=== PATIENT | female | born 1970 | race Caucasian/White ===

== ENCOUNTER 2021-06-25 19:25 | Emergency (ER) | payer SELFPAY ==
[2021-06-25 19:35] VITALS: BP 115/61; PULSE 96; RESP 20; TEMP 36.6; O2SAT 96
[2021-06-25 19:48] VITALS: BMI 61.5
--- NOTE | 2021-06-25 20:02 | ED_ITS ---
HPI - Weakness General Chief complaint: Weakness Stated complaint: left leg weakness Time Seen by Provider: 06/25/21 20:02 Source: patient Mode of arrival: EMS Limitations: no limitations History of Present Illness HPI Narrative: Patient 350 lb obese 50-year-old female recently admitted and discharged from [facility] today was admitted from 06/14 to 06/21 readmitted on 06/21 and discharged today for MSSA bacteremia of unknown source with weekly Dalbavancin infusion when patient went home was unable to get up to the stairs to her trailer although she had manage stairs and walk within the room with minimal assist at the [facility] Related Data Home Medications Medication Instructions Recorded Confirmed acetaminophen 325 mg tablet 650 mg PO Q4H PRN 06/25/21 06/25/21 (Tylenol) citalopram 20 mg tablet 20 mg PO DAILY 06/25/21 06/25/21 gabapentin 100 mg capsule 100 mg PO TID 06/25/21 06/25/21 hydromorphone 2 mg tablet 2 mg Q6H PRN 06/25/21 06/25/21 ibuprofen 400 mg tablet 400 mg PO Q6H PRN 06/25/21 06/25/21 polyethylene glycol 3350 17 gram 17 g PO DAILY 06/25/21 06/25/21 oral powder packet tizanidine 4 mg capsule 4 mg TID 06/25/21 06/25/21 Allergies Allergy/AdvReac Type Severity Reaction Status Date / Time Penicillins Allergy Unknown Unknown Verified 06/25/21 20:17 Review of Systems Verdana 4l Review of Systems: Yes all other systems are reviewed and Verdana 4d are negative [facility] Past Medical History Medical History (Updated 06/25/21 @ 20:57 by Hasmukh Beltrán MD) GERD (gastroesophageal reflux disease) Morbid obesity MSSA bacteremia Pancreatitis Surgical History (Updated 06/25/21 @ 20:14 by Hasmukh Beltrán MD) H/O hernia repair Social History Social History Advance Directives: No Advance Directives Information Provided: No Physical Exam Verdana 4l Vital Signs: Verdana 4d Verdana 4d Vital Signs: Verdana 4d Verdana 4Bd Last Vital Signs Verdana 4d Line Assigner New 4d Line Assigner New 4d Temp 97.6 F 06/25/21 22:18 Line Assigner New 4d Pulse 85 06/25/21 22:18 Line Assigner New 4d Resp 18 06/25/21 22:18 BP 156/84 H 06/25/21 22:18 Pulse Ox 98 06/25/21 22:18 BMI result Body Mass Index 61.5 Appearance: Alert. Oriented X3. No acute distress. Morbidly obese Eyes: PERRLA, No Nystagmus ENT: Pharynx normal. Oral Mucosa moist Neck: Normal inspection. Neck supple. CVS: Normal heart rate and rhythm. Pulses normal. Respiratory: No respiratory distress. Equal air entry bilateral, Abdomen: Soft and nontender. Bowel sounds are present, Skin: Skin warm and dry. Normal skin color. Normal skin turgor. Extremities: No lower extremity edema. No calf tenderness Neuro: Oriented X 3. No motor deficit. MDM - Weakness MDM Narrative Medical decision making narrative: Patient morbidly obese, she is unable to enter the trailer because of quality of the steps which are tilted although she was able to go on steps when she was at [facility] will get Case Management consult for placement Medical Records Attestation: I reviewed the patient's medical records. Lab Data Attestation: I reviewed the patient's lab results. Result diagrams: 06/25/21 20:34 06/25/21 20:34 Labs: Lab Results 06/25/21 06/25/21 06/25/21 Range/Units 20:34 20:34 20:34 WBC 9.3 (4.8-10.8) X10*3/uL RBC 3.87 L (4.20-5.50) X10*6/uL Hgb 10.2 L (12.0-16.0) g/dl Hct 32.5 L (37.0-47.0) % MCV 84.0 (80.0-98.0) fL MCH 26.4 L (27.0-33.0) pg MCHC 31.4 (31.0-35.0) g/dl RDW 18.2 H (11.0-16.0) % Plt Count 392 (160-400) X10*3/uL MPV 9.3 L (9.4-12.3) fL Immature Gran % (Auto) 1.0 H (0.0-0.4) % Neut % (Auto) 72.1 (45-73) % Lymph % (Auto) 19.3 L (20-40) % [place] % (Auto) 6.1 (2-11) % Eos % (Auto) 1.1 (0-4) % Baso % (Auto) 0.4 (0-2) % Lymph # (Auto) 1.8 (1.2-4.9) X10*3/uL [place] # (Auto) 0.6 (0.1-1.2) X10*3/uL Eos # (Auto) 0.1 (0.0-0.4) X10*3/uL Baso # (Auto) 0.0 (0.0-0.2) X10*3/uL Abs Immat Gran (auto) 0.09 H (0.00-0.03) X10*3/uL Absolute Neuts (auto) 6.7 (2.0-8.3) x10*3/uL Absolute Nucleated RBC 0.000 (0.0-0.012) X10*3/uL Nucleated RBC % (auto) 0.0 (0.0-0.2) /100WBC Sodium 138 (135-145) mmol/L Potassium 3.3 (3.3-5.1) mmol/L Chloride 99 (96-108) mmol/L Carbon Dioxide 27 (22-29) mmol/L Anion Gap 15 (12-20) BUN 10 (9-16) mg/dL Creatinine 0.62 (0.5-1.4) mg/dL Estim Creat Clear Calc 177.5 Estimated GFR > 60 Random Glucose 84 (60-115) mg/dL Calcium 8.8 (8.4-10.2) mg/dL Total Bilirubin 0.5 (0.0-1.0) mg/dL AST 20 (5-31) U/L ALT 15 (0-31) U/L Alkaline Phosphatase 92 (39-117) U/L Total Protein 6.9 (6.5-8.0) g/dL Albumin 3.1 L (3.5-5.0) g/dL COVID-19 ([facility]) Negative (Negative) COVID-19 Clin Com See Note Discharge Plan Discharge Clinical Impression: Weakness, Morbid obesity Patient Disposition: Still a Patient Prescriptions: No Action hydromorphone 2 mg Tablet 2 mg Q6H PRN (Reason: moderate pain) 0RF tizanidine 4 mg Capsule 4 mg TID 0RF acetaminophen [Tylenol] 325 mg Tablet 650 mg PO Q4H PRN (Reason: Pain) 0RF polyethylene glycol 3350 17 gram Powder In Packet 17 g PO DAILY 0RF citalopram 20 mg Tablet 20 mg PO DAILY 0RF gabapentin 100 mg Capsule 100 mg PO TID 0RF ibuprofen 400 mg Tablet 400 mg PO Q6H PRN (Reason: pain) 0RF
[2021-06-25 20:39] LABS: MANUAL DIFF FLAG NO
[2021-06-25 20:41] LABS: Basophils Percent Auto 0.4 % (0-2); Eosinophils Absolute Auto 0.1 X10*3/uL (0.0-0.4); Eosinophils Percent Auto 1.1 % (0-4); Hematocrit 32.5 % (37.0-47.0); Hemoglobin 10.2 g/dl (12.0-16.0); Imm Gran Abs Auto 0.09 X10*3/uL (0.00-0.03); Lymphocytes Absolute Auto 1.8 X10*3/uL (1.2-4.9); Lymphocytes Percent Auto 19.3 % (20-40); Mean Corpuscular HGB Conc 31.4 g/dl (31.0-35.0); Mean Corpuscular Hemoglobin 26.4 pg (27.0-33.0); Mean Platelet Volume 9.3 fL (9.4-12.3); Monocytes Absolute Auto 0.6 X10*3/uL (0.1-1.2); Monocytes Percent Auto 6.1 % (2-11); Neutrophils Absolute Auto 6.7 x10*3/uL (2.0-8.3); Neutrophils Percent Auto 72.1 % (45-73); Platelet Count 392 X10*3/uL (160-400); Red Blood Count 3.87 X10*6/uL (4.20-5.50); Red Cell Distribution Width 18.2 % (11.0-16.0); White Blood Count 9.3 X10*3/uL (4.8-10.8)
[2021-06-25 20:55] LABS: Alanine Aminotransferase 15 U/L (0-31); Albumin Level 3.1 g/dL (3.5-5.0); Alkaline Phosphatase 92 U/L (39-117); Anion Gap 15 (12-20); Aspartate Amino Transferase 20 U/L (5-31); Bilirubin Total 0.5 mg/dL (0.0-1.0); Blood Urea Nitrogen 10 mg/dL (9-16); Calcium 8.8 mg/dL (8.4-10.2); Carbon Dioxide 27 mmol/L (22-29); Chloride 99 mmol/L (96-108); Creatinine Clr Calc Pharmacy 177.5; Estimated Glomerular Filt Rate > 60; Glucose Random 84 mg/dL (60-115); Potassium 3.3 mmol/L (3.3-5.1); Sodium 138 mmol/L (135-145); Total Protein 6.9 g/dL (6.5-8.0)
[2021-06-25 20:56] LABS: COVID-19 Test Negative (Negative); IDNOW Serial# 9DD0AD1C
[2021-06-25 22:18] VITALS: BP 156/84; PULSE 85; RESP 18; TEMP 36.4; O2SAT 98
--- NOTE | 2021-06-25 23:50 | PC.NURSE ---
Pt moved from stretcher to hospital bed for pt's comfort Pt tolerated well Will continue to monitor
[2021-06-26 00:34] VITALS: PULSE 80; RESP 2; TEMP 36.5
[2021-06-26 00:35] VITALS: BP 157/89; PULSE 78; RESP 16; TEMP 36.5; O2SAT 96
--- NOTE | 2021-06-26 00:45 | PC.NURSE ---
Pt assisted to bedside commode with engineering technician Pt tolerated well Pt assisted back on hospital bed NAD Will continue to monitor
[2021-06-26] MEDS: Gabapentin 100 MG CAPSULE PO ×3 (01:23→15:52)
[2021-06-26] MEDS: TiZANidine HCL 4 MG TABLET PO ×3 (01:23→15:51)
[2021-06-26 06:53] VITALS: BP 147/86; PULSE 83; RESP 14; TEMP 36.6; O2SAT 98
--- NOTE | 2021-06-26 07:28 | PC.NURSE ---
Pt A&Ox3, c/o minimal back pain at this time. Pt encouraged to self position in bed as she is independent at home. Pt states she is unable to get into her trailer because the steps are tilted. She lives home alone and cares for herself and her dog. she c/o L knee and leg weakness which has been a worsening condition since last year when she first got sick . Pt denies any trauma or services like PT for her knee. Plan for case management. Call brannon within reach. Will continue to monitor.
[2021-06-26] MEDS: polyethylene glycoL 3350 17 GM POWD.PACK PO (09:01)
[2021-06-26] MEDS: Escitalopram Oxalate 10 MG TABLET PO (09:01)
[2021-06-26 09:19] VITALS: BP 160/94; PULSE 78; RESP 14; TEMP 36.6; O2SAT 94
--- NOTE | 2021-06-26 10:37 | MHC.CM.ED ---
Addendum entered by Yesenia Alvarenga 06/26/21 13:00: Patient's friend will be at patient's house at 6pm. BLS transport booked for 530pm Original Note: Received case management consult overnight. Patient was at [facility] d/t MSSA bacteremia. Patient was d/c'd home. Was tranpsorted home by a friend. Patient was unable to get into her home due to the steps. EMS was called and patient came to [facility] instead of returning to [place]. Work up essentially negative. Physical therapy eval completed. Home therapy is recommended. Met with patient in regards to discharge planning. Patient lives alone. Currently has no PCP because she is currently unemployed due to her medical issues. Patient feels she needs STR. T/W explained insurance would not authorize rehab because she passed physical therapy. Patient verbalized understanding. Patient will need BLS transport home at d/c. Patient's friend has the keys to her home. She will contact her friend and let case management know when she will be able to meet her at her home. LALO Ayala aware. Continue to monitor for d/c needs.
[2021-06-26 10:38] VITALS: BP 125/81; PULSE 82; RESP 14; TEMP 36.4; O2SAT 97
[2021-06-26 13:06] VITALS: BP 147/85; PULSE 80; RESP 18; TEMP 36.7; O2SAT 93
--- NOTE | 2021-06-26 14:20 | PC.NURSE ---
Pt sleeping at this time, call brannon within reach. Plan for DC w/BLS transport home at 1730. Will continue to monitor.
== END 2021-06-26 21:31 | disposition home or self-care (01) ==
PROVIDERS: Emergency Provider Internal Medicine
DX: R53.1 Weakness (principal); E66.01 Morbid (severe) obesity due to excess calories; Z20.822 Contact with and (suspected) exposure to COVID-19
CPT/HCPCS: 36415; 80053; 85025; 87635; 97162; 99284; 99285